=== PATIENT | female | born 1995 | race African-American/Black ===

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

== ENCOUNTER 2017-02-16 08:54 | Emergency (ER) | payer MEDICAID ==
[2017-02-16 09:25] VITALS: BP 123/69
[2017-02-16] MEDS ORDERED: ALBUTEROL SULFATE 0.083% NEB 2.5 MG/3 ML AMPUL NEB ONE (10:26)
--- NOTE | 2017-02-16 11:30 | RADIOLOGY REPORT (SQ) ---
EXAM DESCRIPTION: CHEST PA/LAT COMPLETED DATE/TIME: 02/16/2017 11:19 am REASON FOR STUDY: pain with breathing COMPARISON: 09/30/2011 EXAM PARAMETERS: NUMBER OF VIEWS: two views TECHNIQUE: Digital Frontal and Lateral radiographic views of the chest acquired. RADIATION DOSE: NA LIMITATIONS: none FINDINGS: LUNGS AND PLEURA: No opacities, masses or pneumothorax. No pleural effusion. MEDIASTINUM AND HILAR STRUCTURES: No masses or contour abnormalities. HEART AND VASCULAR STRUCTURES: Heart normal size. No evidence for failure. BONES: No acute findings. HARDWARE: None in the chest. OTHER: No other significant finding. IMPRESSION: NO SIGNIFICANT RADIOGRAPHIC FINDING IN THE CHEST. TECHNICAL DOCUMENTATION: JOB ID: [id number] [employer]- All Rights Reserved
--- NOTE | 2017-02-16 11:40 | ER Document Report ---
HPI - HPI Patient complains to provider of: Pain on right side with breathing and coughing , sore throat Onset: Other Onset/Duration: Sudden Quality of pain: Sharp Severity: Severe Pain Level: 5 Context: Patient states she was having some right rib pain when taking deep breathing and coughing several days ago, took ibuprofen and used a heat pack and symptoms are gone. Patient does complain of runny nose, sore throat and some coughing. Denies fever. Associated Symptoms: Nonproductive cough, Rhinnorhea, Sore throat. denies: Fever Exacerbated by: Coughing Relieved by: Other - Ibuprofen Similar symptoms previously: No Recently seen / treated by doctor: No - ROS ROS below otherwise negative: Yes Systems Reviewed and Negative: Yes All other systems reviewed and negative - CONSTITUTIONAL Constitutional: DENIES: Fever - EENT EENT: REPORTS: Sore Throat, Nasal Drainage-Clear - NEURO Neurology: DENIES: Headache - CARDIOVASCULAR Cardiovascular: DENIES: Chest pain - RESPIRATORY Respiratory: REPORTS: Coughing. DENIES: Trouble Breathing - GASTROINTESTINAL Gastrointestinal: DENIES: Abdominal Pain - REPRODUCTIVE Reproductive: DENIES: : - MUSCULOSKELETAL Musculoskeletal: REPORTS: Back Pain - DERM Skin Color: Normal Past Medical History - General Information source: Patient - Social History Smoking Status: Never Smoker Chew tobacco use (# tins/day): No Frequency of alcohol use: None Drug Abuse: None Lives with: Parents Family History: Reviewed & Not Pertinent Pulmonary Medical History: Reports: Hx Asthma Surgical Hx: Negative - Immunizations Immunizations up to date: Yes Hx Diphtheria, Pertussis, Tetanus Vaccination: Yes Vertical Provider Document - CONSTITUTIONAL Agree With Documented VS: Yes Exam Limitations: No Limitations General Appearance: WD/WN, No Apparent Distress - INFECTION CONTROL TRAVEL OUTSIDE OF THE [place] IN LAST 30 DAYS: No - HEENT HEENT: Atraumatic, Normocephalic, Pharyngeal Erythema - mild - NECK Neck: Normal Inspection - RESPIRATORY Respiratory: Breath Sounds Normal, No Respiratory Distress, Chest Non-Tender O2 Sat by Pulse Oximetry: 100 Notes: Decreased air exchange noted. Improved after nebulizer treatment. Patient is requesting a refill on her albuterol inhaler. Ribs nontender to palpation, and patient is able to twist from side to side at the waist without reproducing pain. - CARDIOVASCULAR Cardiovascular: Regular Rate, Regular Rhythm - GI/ABDOMEN Gastrointestinal: Abdomen Soft, Abdomen Non-Tender - BACK Back: Normal Inspection - MUSCULOSKELETAL/EXTREMETIES Musculoskeletal/Extremeties: MAEW - NEURO Level of Consciousness: Awake, Alert, Appropriate - DERM Integumentary: Warm, Dry, No Rash Course - Re-evaluation Re-evalutation: 02/16/17 11:37 Chest x-ray was negative and findings were discussed with patient. Is requesting a refill on albuterol inhaler. - Vital Signs Vital signs: Temp Pulse Resp BP Pulse Ox 98.7 F 96 H 20 123/69 100 02/16/17 09:24 02/16/17 09:24 02/16/17 09:24 02/16/17 09:24 02/16/17 09:24 Discharge - Discharge Clinical Impression: Rib pain on right side URI (upper respiratory infection) Qualifiers: URI type: unspecified URI Qualified Code(s): J06.9 - Acute upper respiratory infection, unspecified Condition: Good Disposition: HOME, SELF-CARE Additional Instructions: Tylenol or Motrin as needed for pain Bycm-kim-omerajw cough cold medication for symptom relief Push fluids Follow-up with your primary care physician if not better in 1 week, earlier if worsens Return as needed Prescriptions: Albuterol Sulfate [Ventolin HFA MDI 18 GM] 1 - 2 puff IH Q4H PRN #1 mdi PRN Reason: Forms: Return to Work
== END 2017-02-16 12:11 | disposition home or self-care (01) ==
LOC: ER 08:54
DX: J06.9 Acute upper respiratory infection, unspecified (principal); R07.81 Pleurodynia; M54.9 Dorsalgia, unspecified
CPT/HCPCS: 71020; 94640; 99284

== ENCOUNTER 2018-02-08 19:22 | Emergency (ER) | payer SELFPAY ==
[2018-02-08 22:07] LABS: APPEARANCE,URINE CLOUDY; BILIRUBIN,URINE NEGATIVE (NEGATIVE); COLOR,URINE YELLOW; GLUCOSE, URINE NEGATIVE (NEGATIVE); KETONES,URINE NEGATIVE (NEGATIVE); LEUKOCYTE ESTERASE,URINE TRACE (NEGATIVE); NITRITE,URINE NEGATIVE (NEGATIVE); PROTEIN,URINE NEGATIVE (NEGATIVE); URINE SPECIFIC GRAVITY 1.015; UROBILINOGEN,URINE NEGATIVE mg/dL (<2.0)
--- NOTE | 2018-02-08 23:38 | RADIOLOGY REPORT (SQ) ---
EXAM DESCRIPTION: US TRANSVAGINAL COMPLETED DATE/TME: 02/08/2018 22:39 CLINICAL HISTORY: 22 years, Female, abdominal pain in Findings: The uterus measures 7.7 x 5.7 x 5.7 cm. There is intrauterine gestation noted which corresponds to gestational age of six weeks and one day. heart rate is noted at 126 bpm. Maternal right ovary is visualized. Maternal left ovary is not visualized. There appears to be mild hypoechoic region next to the gestational sac measuring 9 mm, suspicious for subchorionic hemorrhage. Vascular flow seen in the right ovary. No significant free fluid. Cervical length 2.8 cm. IMPRESSION: Single viable IUP of six weeks and one day. Possible mild subchorionic hemorrhage.
[2018-02-08] MEDS ORDERED: METOCLOPRAMIDE HCL 10 MG TABLET PO ONE (23:42)
[2018-02-08] MEDS ORDERED: HYDROCODONE/ACETAMINOPHEN 5-325 MG (6 TAB/ER DISP) PO PRN (23:47)
--- NOTE | 2018-02-08 23:48 | ER Document Report ---
ED General - General Chief Complaint: Abdominal Pain Stated Complaint: VOMITING Time Seen by Provider: 02/08/18 22:00 TRAVEL OUTSIDE OF THE [place] IN LAST 30 DAYS: No - Related Data Allergies/Adverse Reactions: No Known Allergies Allergy (Verified 02/16/17 09:24) Past Medical History - Social History Smoking Status: Never Smoker Chew tobacco use (# tins/day): No Frequency of alcohol use: None Drug Abuse: Marijuana Family History: Reviewed & Not Pertinent Patient has suicidal ideation: No Patient has homicidal ideation: No Pulmonary Medical History: Reports: Hx Asthma Renal/ Medical History: Denies: Hx Peritoneal Dialysis - Immunizations Immunizations up to date: Yes Hx Diphtheria, Pertussis, Tetanus Vaccination: Yes Physical Exam - Vital signs Vitals: Temp Pulse Resp BP Pulse Ox 99.0 F 91 16 118/64 99 02/08/18 19:55 02/08/18 19:55 02/08/18 19:55 02/08/18 19:55 02/08/18 19:55 Course - Re-evaluation Re-evalutation: 02/09/18 00:46 Because of the patient having some abdominal pain we did obtain ultrasound which shows an IUP at 6 weeks. There is a small subchorionic hemorrhage and therefore we did do a type and screen and she is Rh+. She does not need RhoGam. At this time for the patient safe to be discharged home. She looks well. I will give her Reglan to take at home. Also prescribed vitamins. We will have her follow-up with either the health department or the [facility] for continued care. I explained to her what a subchorionic hemorrhage was. I encouraged her return to ER if she has heavy vaginal bleeding, worsening pain, or she feels unwell. She agrees with plan will be discharged home. Dictation of this chart was performed using voice recognition software; therefore, there may be some unintended grammatical errors. - Vital Signs Vital signs: Temp Pulse Resp BP Pulse Ox 98.5 F 90 16 117/70 100 02/08/18 23:31 02/08/18 23:31 02/08/18 23:31 02/08/18 23:31 02/08/18 23:31 - Laboratory Laboratory results interpreted by me: 02/08/18 02/08/18 21:55 22:45 Beta HCG, Quant 84065.00 H Ur Leukocyte Esterase TRACE H Urine HCG, Qual POSITIVE H Discharge - Discharge Clinical Impression: Abdominal pain Qualifiers: Abdominal location: lower abdomen, unspecified Qualified Code(s): R10.30 - Lower abdominal pain, unspecified Qualifiers: Weeks of gestation: less than 8 weeks Qualified Code(s): Z3A.01 - Less than 8 weeks gestation of Vomiting Qualifiers: Vomiting type: unspecified Vomiting Intractability: non-intractable Nausea presence: with nausea Qualified Code(s): R11.2 - Nausea with vomiting, unspecified Condition: Good Disposition: HOME, SELF-CARE Additional Instructions: Your ultrasound shows that you do have a fetus in the uterus. No evidence of ectopic . You did have a small amount of bleeding where the fetus implants near the uterus. This bleeding is called a subchorionic hemorrhage. Most times subchorionic hemorrhages resolve on their own. Sometimes they will progress and worsen into a miscarriage. Please return to the ER if you have increasing pain, vaginal bleeding, or feel unwell. Please avoid sexual activity or heavy lifting for 2 weeks. Please make an appointment with the women's health center or the health department for continued care. Please take vitamins every day. I have prescribed you Reglan which is a nausea medicine to help with your nausea. Prescriptions: Metoclopramide HCl [Reglan 10 mg Tablet] 1 tab PO ASDIR PRN #20 tablet PRN Reason: Pnv No.95/Ferrous Fum/Folic AC [ Formula] 1 each PO DAILY #60 tablet Forms: Return to Work Referrals: CONCHITA TORRES MD [ACTIVE STAFF] - Follow up in 3-5 days
[2018-02-09 01:27] VITALS: BP 102/64
== END 2018-02-09 01:27 | disposition home or self-care (01) ==
LOC: ER 19:22
DX: O21.9 Vomiting of pregnancy, unspecified (principal); R10.30 Lower abdominal pain, unspecified; Z3A.01 Less than 8 weeks gestation of pregnancy
CPT/HCPCS: 36415; 76817; 81001; 81025; 84702; 86900; 86901; 93976; 99284

== ENCOUNTER 2018-09-26 11:46 | Inpatient (IN) | payer MEDICAID ==
[2018-09-26] MEDS ORDERED: MISOPROSTOL 0.2 MG TABLET ONE (12:15)
[2018-09-26] MEDS ORDERED: OXYTOCIN/NORMAL SALINE 20 UNIT/1,000 ML RTUINJ ONE (12:15)
[2018-09-26] MEDS ORDERED: LIDOCAINE 1% INJ-PF (10 MG/ML) 30 ML SDV ONE (12:15)
[2018-09-26 13:04] LABS: ABSOLUTE LYMPHOCYTES (AUTO) 1.2 10^3/uL (0.5-4.7); ABSOLUTE MONOCYTES (AUTO) 0.3 10^3/uL (0.1-1.4); ABSOLUTE NEUT (AUTO) 9.8 10^3/uL (1.7-8.2); BASOPHILS % (AUTO) 0.2 % (0-2); HEMATOCRIT 41.4 % (36.0-47.0); HEMOGLOBIN 13.4 g/dL (12.0-15.5); LYMPHOCYTES % (AUTO) 10.5 % (13-45); MEAN CORPUSCULAR HEMOGLOBIN 23.7 pg (27.0-33.4); MEAN CORPUSCULAR HGB CONC 32.3 g/dL (32.0-36.0); MEAN CORPUSCULAR VOLUME 73 fl (80-97); MONOCYTES % (AUTO) 2.5 % (3-13); PLATELET COUNT 212 10^3/uL (150-450); RED BLOOD COUNT 5.65 10^6/uL (3.72-5.28); RED CELL DISTRIBUTION WIDTH 23.7 % (11.5-14.0); SEGMENTED NEUTROPHILS % (AUTO) 86.8 % (42-78); TOTAL CELLS COUNTED % (AUTO) 100 %; WHITE BLOOD COUNT 11.3 10^3/uL (4.0-10.5)
[2018-09-26 13:36] LABS: POLYCHROMASIA SLIGHT
[2018-09-26 13:37] LABS: ANISOCYTOSIS 3+; OVALOCYTES SLIGHT; PLATELET COMMENT ADEQUATE; POIKILOCYTOSIS SLIGHT; SCHISTOCYTES SLIGHT; TEAR DROP CELLS SLIGHT
[2018-09-26 14:39] LABS: APPEARANCE,URINE TURBID; BILIRUBIN,URINE NEGATIVE (NEGATIVE); COLOR,URINE YELLOW; GLUCOSE, URINE NEGATIVE (NEGATIVE); KETONES,URINE 80 mg/dL (NEGATIVE); LEUKOCYTE ESTERASE,URINE NEGATIVE (NEGATIVE); NITRITE,URINE NEGATIVE (NEGATIVE); PROTEIN,URINE 30 mg/dL (NEGATIVE); URINE SPECIFIC GRAVITY 1.019; UROBILINOGEN,URINE NEGATIVE mg/dL (<2.0)
[2018-09-26] MEDS ORDERED: BENZOCAINE/MENTHOL AEROSOL SPRAY 56 ML ONE (14:46)
[2018-09-26] MEDS ORDERED: ACETAMINOPHEN WITH CODEINE #3 TABLET ONE (14:46)
[2018-09-26 15:09] LABS: URINE AMPHETAMINES SCREEN NEGATIVE; URINE BARBITURATES SCREEN NEGATIVE; URINE BENZODIAZEPINES SCREEN NEGATIVE; URINE COCAINE SCREEN NEGATIVE; URINE METHADONE SCREEN NEGATIVE; URINE PHENCYCLIDINE SCREEN NEGATIVE
[2018-09-26 16:04] LABS: URINE MARIJUANA (THC) SCREEN NEGATIVE
--- NOTE | 2018-09-26 16:04 | Delivery Summary ---
Del Sum A-C Datetime Report Generated by CPN: 09/26/2018 16:03 DELIVERY PERSONNEL DELIVERY PERSONNEL: [id number] Delivery Doctor:: Maggy Johnson CNM Labor and Delivery Nurse:: Charlette Colin RNinspector watch parts Nurse:: Patel Huertas RN Top Lifter/VOIP NETWORK ENGINEER: Joliesara Odom, ST MATERNAL INFORMATION Delivery Anesthesia: None Medications After Delivery: Pitocin Drip 20 Units/1000ml NSS Maternal Complications: None Provider Comments: SVDVF over intact perineaum. OA to VALDEZ, vigorous to mother abd. Cord clamped x 2, cut per family. Cord blood collected. Placenta delivered by RN, intact via Gee. Bleeding stabilized. Lacerations repaired with chromic, lidocaine used. Mother and infant stable. LABOR SUMMARY EDC: 10/03/2018 00:00 No. Babies in Womb: 1 Attempted: No Labor Anesthesia: None LABOR INFORMATION Reason for Induction: Not Applicable Reason for Induction- Other: n/a Onset of Labor: 09/26/2018 05:00 Complete Dilatation: 09/26/2018 12:48 Oxytocin: N/A Group B Beta Strep: negative Antibiotics # of Doses: 0 Steroids Given: None Reason Steroids Not Administered: Not Applicable MEMBRANES Membranes Rupture Method: Artificial Rupture of Membranes: 09/26/2018 13:26 Length of Rupture (hr): 0.00 Amniotic Fluid Color: Clear Amniotic Fluid Amount: Small Amniotic Fluid Odor: Normal STAGES OF LABOR Stage 1 hr: 7 Stage 1 min: 48 Stage 2 hr: 0 Stage 2 min: 38 Stage 3 hr: 0 Stage 3 min: 8 Total Time in Labor hr: 8 Total Time in Labor min: 34 VAGINAL DELIVERY Episiotomy: None Other Laceration: 1* periclitoral, 1* Rt labial Laceration Repair Note: repaired with chromic suture Sponge Count Correct: Yes Sharps Count Correct: Yes CSECTION DELIVERY Primary Indication: N/A Secondary Indication: N/A CSection Incidence: N/A Labor: N/A Elective: N/A CSection Incision: N/A BABY A INFORMATION Delivery Date/Time: 09/26/2018 13:26 Method of Delivery: Vaginal Born in Route : No : N/A Forceps: N/A Vacuum Extraction: N/A Shoulder Dystocia : No PRESENTATION/POSITION BABY A Presentation: Cephalic Cephalic Presentation: Vertex Vertex Position: Right Occipital Anterior Breech Presentation: N/A PLACENTA INFORMATION BABY A Placenta Delivery Time : 09/26/2018 13:34 Placenta Method of Delivery: Spontaneous Placenta Status: Delivered SCORES BABY A Heart Rate 1 min: >100 bpm Resp Effort 1 min: Good Cry Reflex Irritability 1 min: Cough or Sneeze or Pulls Away Muscle Tone 1 min: Active Motion Color 1 min: Body [place], Extremities Blue Resuscitation Effort 1 min: Tactile Stimulation SCORE 1 MIN: 9 Heart Rate 5 min: >100 bpm Resp Effort 5 min: Good Cry Reflex Irritability 5 min: Cough or Sneeze or Pulls Away Muscle Tone 5 min: Active Motion Color 5 min: Body [place], Extremities Blue Resuscitation Effort 5 min: Tactile Stimulation SCORE 5 MIN: 9 INFANT INFORMATION BABY A Gestational Age at Delivery: 39.0 Gestational Status: Full Term- 39- 40.6 Weeks Outcome : Liveborn Condition : Stable Sex: Female IDENTIFICATION BABY A Infant Verification Date/Time: 09/26/2018 13:46 ID Band Number: [id number] Mother's Name Verified: Yes RN Verifying : TAlex Huertas, RN and B. Baidy, RN WEIGHT/LENGTH BABY A Birthweight (gm): 3203 Infant Weight (lb): 7 Infant Weight (oz): 1 Length (in): 19.00 Length (cm): 48.26 CORD INFORMATION BABY A No. Cord Vessels: 3 Nuchal Cord : N/A Cord Blood Taken: Yes-For Storage (Mom's Blood type +) Infant Suction: None ASSESSMENT BABY A Infant Complications: None Physical Findings at Delivery: Within Normal Limits Infant Respirations: Appears Normal Skin to Skin: Yes Skin to Skin Time (min): 80 Track Production Engineer/ALS Called : No Care By: T Aleksandar RN Transferred To: Remains with Mother BABY B INFORMATION : N/A SIGNATURES Assignment: Kristal Garza MD Signature: with User ID: [email or web address] : with User ID: [email or web address] : I was personally available for consultation and serving as supervising physician for the MLP.
[2018-09-26] MEDS ORDERED: ZOLPIDEM TARTRATE 5 MG TABLET PO PRN (16:06)
[2018-09-26] MEDS ORDERED: DIBUCAINE 1% OINTMENT 56 GM TP PRN (16:06)
[2018-09-26] MEDS ORDERED: BENZOCAINE/MENTHOL AEROSOL SPRAY 56 ML TOP PRN (16:06)
[2018-09-26] MEDS ORDERED: DIPH/PERTUSS(ACELL)/TETANUS VAC/PF 0.5 ML SYR (>=10YO) IM PRN (16:06)
[2018-09-26] MEDS ORDERED: MEASLES,MUMPS&RUBELLA VACC/PF 0.5 ML VIAL SUBCUT PRN (16:06)
[2018-09-26] MEDS ORDERED: OXYTOCIN/NORMAL SALINE 20 UNIT/1,000 ML RTUINJ IV PRN (16:06)
[2018-09-26] MEDS ORDERED: ACETAMINOPHEN WITH CODEINE #3 TABLET PO PRN (16:06)
[2018-09-26 17:19] LABS: ABSOLUTE LYMPHOCYTES (AUTO) 1.3 10^3/uL (0.5-4.7); ABSOLUTE MONOCYTES (AUTO) 0.7 10^3/uL (0.1-1.4); BASOPHILS % (AUTO) 0.2 % (0-2); EOSINOPHILS % (AUTO) 0.1 % (0-6); HEMATOCRIT 39.4 % (36.0-47.0); HEMOGLOBIN 12.8 g/dL (12.0-15.5); LYMPHOCYTES % (AUTO) 7.9 % (13-45); MEAN CORPUSCULAR HEMOGLOBIN 23.9 pg (27.0-33.4); MEAN CORPUSCULAR HGB CONC 32.4 g/dL (32.0-36.0); MEAN CORPUSCULAR VOLUME 74 fl (80-97); MONOCYTES % (AUTO) 4.2 % (3-13); PLATELET COUNT 223 10^3/uL (150-450); RED BLOOD COUNT 5.34 10^6/uL (3.72-5.28); RED CELL DISTRIBUTION WIDTH 23.4 % (11.5-14.0); SEGMENTED NEUTROPHILS % (AUTO) 87.6 % (42-78); TOTAL CELLS COUNTED % (AUTO) 100 %; WHITE BLOOD COUNT 17.1 10^3/uL (4.0-10.5)
[2018-09-26] MEDS: FERROUS SULFATE 325 MG TABLET PO SCH (18:30)
[2018-09-26] MEDS: DOCUSATE SODIUM 100 MG CAPSULE PO SCH (18:30)
[2018-09-26] MEDS: IBUPROFEN 800 MG TABLET PO SCH (21:04)
[2018-09-26] MEDS: ACETAMINOPHEN WITH CODEINE #3 TABLET PO PRN (23:49)
[2018-09-27] MEDS: IBUPROFEN 800 MG TABLET PO SCH ×3 (05:45→21:02)
[2018-09-27 06:26] LABS: ABSOLUTE EOSINOPHILS # (AUTO) 0.1 10^3/uL (0.0-0.6); ABSOLUTE LYMPHOCYTES (AUTO) 3.3 10^3/uL (0.5-4.7); ABSOLUTE MONOCYTES (AUTO) 1.1 10^3/uL (0.1-1.4); ABSOLUTE NEUT (AUTO) 9.3 10^3/uL (1.7-8.2); BASOPHILS % (AUTO) 0.3 % (0-2); EOSINOPHILS % (AUTO) 0.4 % (0-6); HEMATOCRIT 37.8 % (36.0-47.0); HEMOGLOBIN 12.5 g/dL (12.0-15.5); LYMPHOCYTES % (AUTO) 23.7 % (13-45); MEAN CORPUSCULAR HEMOGLOBIN 23.9 pg (27.0-33.4); MEAN CORPUSCULAR VOLUME 73 fl (80-97); MONOCYTES % (AUTO) 7.9 % (3-13); PLATELET COUNT 212 10^3/uL (150-450); RED BLOOD COUNT 5.22 10^6/uL (3.72-5.28); RED CELL DISTRIBUTION WIDTH 23.5 % (11.5-14.0); SEGMENTED NEUTROPHILS % (AUTO) 67.7 % (42-78); TOTAL CELLS COUNTED % (AUTO) 100 %; WHITE BLOOD COUNT 13.7 10^3/uL (4.0-10.5)
[2018-09-27 07:08] LABS: ANISOCYTOSIS 3+; BURR CELLS SLIGHT; OVALOCYTES SLIGHT; TARGET CELLS SLIGHT; TEAR DROP CELLS SLIGHT
[2018-09-27 07:09] LABS: PLATELET COMMENT ADEQUATE
--- NOTE | 2018-09-27 09:16 | PDOC PROGRESS REPORT ---
Subjective-OB Progress Note for:: 09/27/18 Subjective: Doing well, no c/o, family at BS, holding baby, breast and bottle feeding, Physical Exam (OB) Vital Signs: Temp Pulse Resp BP Pulse Ox 98.2 F 83 16 117/72 99 09/27/18 08:04 09/27/18 08:04 09/27/18 08:04 09/27/18 08:04 09/27/18 08:04 Intake & Output 09/26/18 09/27/18 09/28/18 06:59 06:59 06:59 Weight 96.162 kg - PIH/Pre-Eclampsia DTR's: 2 + Clonus: Negative Headache: Absent Epigastric Pain: No Visual Changes: No - Lochia Lochia Amount: Small 10-25 ml Lochia Color: Rubra/Red - Abdomen Description: Soft, Round Fundal Description: Firm Fundal Height: u/u - u/2 Objective-Diagnostic Laboratory: 09/27/18 05:39 09/26/18 09/26/18 09/26/18 11:52 12:27 12:27 WBC 11.3 H RBC 5.65 H Hgb 13.4 Hct 41.4 MCV 73 L MCH 23.7 L MCHC 32.3 RDW 23.7 H Plt Count 212 Seg Neutrophils % 86.8 H Lymphocytes % 10.5 L Monocytes % 2.5 L Eosinophils % 0.0 Basophils % 0.2 Absolute Neutrophils 9.8 H Absolute Lymphocytes 1.2 Absolute Monocytes 0.3 Absolute Eosinophils 0.0 Absolute Basophils 0.0 Urine Color YELLOW Urine Appearance TURBID Urine pH 5.0 Ur Specific [place] 1.019 Urine Protein 30 H Urine Glucose (UA) NEGATIVE Urine Ketones 80 H Urine Blood MODERATE H Urine Nitrite NEGATIVE Ur Leukocyte Esterase NEGATIVE Blood Type A POSITIVE Antibody Screen NEGATIVE 09/26/18 09/27/18 16:50 05:39 WBC 17.1 H 13.7 H RBC 5.34 H 5.22 Hgb 12.8 12.5 Hct 39.4 37.8 MCV 74 L 73 L MCH 23.9 L 23.9 L MCHC 32.4 33.0 RDW 23.4 H 23.5 H Plt Count 223 212 Seg Neutrophils % 87.6 H 67.7 Lymphocytes % 7.9 L 23.7 Monocytes % 4.2 7.9 Eosinophils % 0.1 0.4 Basophils % 0.2 0.3 Absolute Neutrophils 15.0 H 9.3 H Absolute Lymphocytes 1.3 3.3 Absolute Monocytes 0.7 1.1 Absolute Eosinophils 0.0 0.1 Absolute Basophils 0.0 0.0 Urine Color Urine Appearance Urine pH Ur Specific [place] Urine Protein Urine Glucose (UA) Urine Ketones Urine Blood Urine Nitrite Ur Leukocyte Esterase Blood Type Antibody Screen Assessment and Plan(PN) - Assessment and Plan (1) Vaginal delivery Is this a current diagnosis for this admission?: Yes - Time Spent with Patient Time with patient: Less than 15 minutes Medications reviewed and adjusted accordingly: Yes - Disposition Anticipated Discharge: Home Within: within 24 hours
[2018-09-27] MEDS: PRENATAL VITAMIN W DHA CAPSULE PO SCH (10:06)
[2018-09-27] MEDS: FERROUS SULFATE 325 MG TABLET PO SCH ×2 (10:06→18:22)
[2018-09-27] MEDS: SENNOSIDES/DOCUSATE 8.6-50 MG 1 EACH TABLET PO SCH (10:06)
[2018-09-27] MEDS: DOCUSATE SODIUM 100 MG CAPSULE PO SCH ×2 (10:07→18:21)
[2018-09-27] MEDS: ACETAMINOPHEN WITH CODEINE #3 TABLET PO PRN (19:20)
[2018-09-28] MEDS: ACETAMINOPHEN WITH CODEINE #3 TABLET PO PRN (00:35)
[2018-09-28] MEDS: IBUPROFEN 800 MG TABLET PO SCH ×2 (05:20→14:16)
[2018-09-28 08:28] VITALS: BP 106/53
[2018-09-28] MEDS: DOCUSATE SODIUM 100 MG CAPSULE PO SCH (09:37)
[2018-09-28] MEDS: PRENATAL VITAMIN W DHA CAPSULE PO SCH (09:37)
[2018-09-28] MEDS: SENNOSIDES/DOCUSATE 8.6-50 MG 1 EACH TABLET PO SCH (09:37)
[2018-09-28] MEDS: FERROUS SULFATE 325 MG TABLET PO SCH (09:37)
--- NOTE | 2018-09-28 12:13 | PDOC DISCHARGE SUMMARY ---
Final Diagnosis Discharge Date: 09/28/18 - Final Diagnosis (1) Obstetric labial laceration, delivered, current hospitalization Is this a current diagnosis for this admission?: Yes (2) Vaginal delivery Is this a current diagnosis for this admission?: Yes Discharge Data - Discharge Medication Prescriptions: Ibuprofen [Motrin 800 mg Tablet] 800 mg PO Q8HP PRN #30 tablet PRN Reason: Abdominal Cramping Benzocaine/Menthol [Dermoplast Aerosol [place] 56 ml] 1 applic TOP PRN PRN #1 can PRN Reason: Home Medications: Vit,Calc76/Iron/Folic [Prenatabs Rx Tablet] 1 tab PO DAILY 09/26/18 Benzocaine/Menthol [Dermoplast Aerosol [place] 56 ml] 1 applic TOP PRN PRN #1 can 09/28/18 Ibuprofen [Motrin 800 mg Tablet] 800 mg PO Q8HP PRN #30 tablet 09/28/18 Reason(s) for Admission: Onset of Labor Procedures: Ultrasound Intrapartum Procedure(s): Spontaneous Vaginal Delivery Complication(s): Laceration-Labial, Other - laceration leonardo clitoral - Diagnosis Test Laboratory: Temp Pulse Resp BP Pulse Ox 98.0 F 85 16 106/53 L 100 09/28/18 08:13 09/28/18 08:13 09/28/18 08:13 09/28/18 08:13 09/28/18 08:13 09/26/18 09/26/18 09/26/18 11:52 12:27 16:50 RBC 5.65 H 5.34 H Hgb 13.4 12.8 Hct 41.4 39.4 Urine Opiates Screen NEGATIVE 09/27/18 05:39 RBC 5.22 Hgb 12.5 Hct 37.8 Urine Opiates Screen - Discharge information/Instructions Discharge Activity: Activity As Tolerated, Balance Activity w/Rest, No Lifting Over 10 Pounds, Pelvic Rest, No tub bath, Walk Frequently Discharge Diet: As Tolerated, Regular Disposition: HOME, SELF-CARE Follow up with: [facility] in: 5, Weeks
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
== END 2018-09-28 15:30 | disposition home or self-care (01) | DRG 807 ==
LOC: LC 11:46 → LR 12:12 → 2S 15:48
PROVIDERS: ADMIT Student in an Organized Health Care Education/Training Program; ATTEND Student in an Organized Health Care Education/Training Program
PROC: 10E0XZZ Delivery of Products of Conception, External Approach (ICD-10-PCS; principal; 2018-09-26)
PROC: 0HQ9XZZ Repair Perineum Skin, External Approach (ICD-10-PCS; 2018-09-26)
DX: O99.02 Anemia complicating childbirth (principal); Z37.0 Single live birth; D57.3 Sickle-cell trait; O70.0 First degree perineal laceration during delivery; Z3A.39 39 weeks gestation of pregnancy
CPT/HCPCS: 36415; 80307; 81005; 85025; 86592; 86850; 86900; 86901; J2590; J3490

== ENCOUNTER 2019-03-18 18:40 | Emergency (ER) | payer MEDICAID ==
--- NOTE | 2019-03-18 18:53 | ER Document Report ---
ED Medical Screen (RME) - General Chief Complaint: Difficulty Swallowing Stated Complaint: DIFFICULTY SWALLOWING Time Seen by Provider: 03/18/19 18:51 Mode of Arrival: Ambulatory Information source: Patient Notes: Patient presents complaining of sore throat and difficulty swallowing that started yesterday. No fever. Patient does report mild headache as well. I have greeted and performed a rapid initial assessment of this patient. A comprehensive ED assessment and evaluation of the patient, analysis of test results and completion of the medical decision making process will be conducted by additional ED providers. TRAVEL OUTSIDE OF THE [place] IN LAST 30 DAYS: No - Related Data Allergies/Adverse Reactions: No Known Allergies Allergy (Verified 03/18/19 18:44) Past Medical History - Social History Chew tobacco use (# tins/day): No Frequency of alcohol use: None Drug Abuse: None Pulmonary Medical History: Reports: Hx Asthma Renal/ Medical History: Denies: Hx Peritoneal Dialysis - Immunizations Immunizations up to date: Yes Hx Diphtheria, Pertussis, Tetanus Vaccination: Yes Physical Exam - HEENT Pharynx: Erythema. No: Exudate, Uvular edema, Potential airway comprom.
--- NOTE | 2019-03-18 20:01 | ER Document Report ---
HPI - HPI Patient complains to provider of: sore throat Time Seen by Provider: 03/18/19 18:51 Onset: Yesterday Onset/Duration: Sudden Severity: Mild Pain Level: 2 Context: 23-year-old female presents emergency department with complaints of sore throat hurts to swallow. Denies fever vomiting diarrhea. 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 Complains of slight headache. Patient talking in a clear voice no cough noted. Associated Symptoms: Headache Exacerbated by: Denies Relieved by: Denies Similar symptoms previously: No Recently seen / treated by doctor: No - REPRODUCTIVE Reproductive: DENIES: : Past Medical History - General Information source: Patient Last Menstrual Period: Current - Social History Smoking Status: Never Smoker Chew tobacco use (# tins/day): No Frequency of alcohol use: None Drug Abuse: None Occupation: call center Lives with: Family Family History: Reviewed & Not Pertinent Patient has suicidal ideation: No Patient has homicidal ideation: No Pulmonary Medical History: Reports: Hx Asthma Renal/ Medical History: Denies: Hx Peritoneal Dialysis Surgical Hx: Negative - Immunizations Immunizations up to date: Yes Hx Diphtheria, Pertussis, Tetanus Vaccination: Yes Vertical Provider Document - CONSTITUTIONAL Agree With Documented VS: Yes Exam Limitations: No Limitations General Appearance: WD/WN, No Apparent Distress - INFECTION CONTROL TRAVEL OUTSIDE OF THE [place] IN LAST 30 DAYS: No - HEENT HEENT: Atraumatic, Normocephalic, Pharyngeal Erythema - Good airway no trismus clear voice opens mouth wide no peritonsillar abscess. negative: Conjuctival Injection, Tympanic Membrane Red - NECK Neck: Normal Inspection, Supple. negative: Lymphadenopathy-Right - RESPIRATORY Respiratory: Breath Sounds Normal, No Respiratory Distress - CARDIOVASCULAR Cardiovascular: Regular Rhythm, Tachycardia - MUSCULOSKELETAL/EXTREMETIES Musculoskeletal/Extremeties: [place]DA FAIR - NEURO Level of Consciousness: Awake, Alert, Appropriate Motor/Sensory: No Motor Deficit - DERM Integumentary: Warm, Dry, No Rash Course - Re-evaluation Re-evalutation: 03/18/19 20:51 23-year-old female presents emergency department sore throat for 1 day. Also complains of slight headache. No fever vomiting diarrhea. Patient works at a call center. Patient looks nontoxic talks in a clear voice opens mouth wide no trismus good airway. Patient was instructed on negative strep test. Instructed throat culture pending and she will be contacted should she need antibiotics. She verbalized understanding to all instructions. Dictation of this chart was performed using voice recognition software; therefore, there may be some unintended grammatical errors. Discharge - Discharge Clinical Impression: Sore throat Condition: Stable Disposition: HOME, SELF-CARE Instructions: Sore Throat ([facility]) Additional Instructions: *You have been evaluated for a sore throat *Your strep test was negative. A throat culture is pending. You will be contacted in 2 to 3 days should you need antibiotics. *In the meantime gargle with warm salt water and utilize throat lozenges for comfort *Do not let anyone drink/eat after you *Good hand washing *Follow-up with a primary care provider within 1 week for recheck *Return to ED for worsening condition change, needs, concerns, unable to swallow Forms: Elevated Blood Pressure, Return to Work Referrals: DARNELL WILLIAM MD [Primary Care Provider] - Follow up as needed
[2019-03-18 20:17] VITALS: BP 125/80
== END 2019-03-18 20:22 | disposition home or self-care (01) ==
LOC: ER 18:40
DX: J02.9 Acute pharyngitis, unspecified (principal); R51 Headache
CPT/HCPCS: 87070; 87880; 99284

== ENCOUNTER 2019-05-04 19:22 | Emergency (ER) | payer MEDICAID ==
[2019-05-04] MEDS ORDERED: CIPROFLOXACIN HCL/DEXAMETH OTIC DROP 7.5 ML AS ONE (22:23)
--- NOTE | 2019-05-04 22:24 | ER Document Report ---
HPI - HPI Time Seen by Provider: 05/04/19 22:11 Pain Level: 4 Notes: Otherwise healthy 24-year-old female presenting to the emergency department with complaints of left ear pain. Patient reports she is tried cleaning out her ear however she cannot get the pain and full sensation to go away. She states symptoms have been ongoing for several days. - EENT EENT: REPORTS: Ear Pain - left - REPRODUCTIVE Reproductive: DENIES: : Past Medical History - General Information source: Patient - Social History Smoking Status: Never Smoker Chew tobacco use (# tins/day): No Drug Abuse: None Family History: Reviewed & Not Pertinent Patient has suicidal ideation: No Patient has homicidal ideation: No Pulmonary Medical History: Reports: Hx Asthma Renal/ Medical History: Denies: Hx Peritoneal Dialysis - Immunizations Immunizations up to date: Yes Hx Diphtheria, Pertussis, Tetanus Vaccination: Yes Vertical Provider Document - CONSTITUTIONAL Notes: PHYSICAL EXAMINATION: GENERAL: Well-appearing, well-nourished and in no acute distress. HEAD: Atraumatic, normocephalic. EYES: Pupils equal round extraocular movements intact, conjunctiva are normal. ENT: Unable to visualize left TM due to swollen canal, no mastoid tenderness bilaterally. NECK: Normal range of motion LUNGS: No respiratory distress Musculoskeletal: Normal range of motion NEUROLOGICAL: Normal speech, normal gait. PSYCH: Normal mood, normal affect. SKIN: Warm, Dry, normal turgor, no rashes or lesions noted. - INFECTION CONTROL TRAVEL OUTSIDE OF THE [place] IN LAST 30 DAYS: No Course - Re-evaluation Re-evalutation: Examination consistent with otitis externa. Patient will be started on Ciprodex drops, and ear wick will be applied. The ear canal is very swollen. Patient verbalizes understanding and agreement with treatment plan. ED return precautions were also discussed and patient verbalized understanding and agreement with same. - Vital Signs Vital signs: Temp Pulse Resp BP Pulse Ox 98.2 F 97 16 148/81 H 97 05/04/19 19:49 05/04/19 19:49 05/04/19 19:49 05/04/19 19:49 05/04/19 19:49 Discharge - Discharge Clinical Impression: Otitis externa Qualifiers: Otitis externa type: diffuse Chronicity: acute Laterality: left Qualified Code(s): H60.312 - Diffuse otitis externa, left ear Condition: Stable Disposition: HOME, SELF-CARE Instructions: Otitis Externa ([facility]) Additional Instructions: Please apply 4 drops to the left ear twice daily for 7 days. The wick may fall out on its own and that is okay. Continue taking the drops. Please also take some ibuprofen 600 mg every 6 hours should help with the pain and inflammation. Follow-up with your doctor in 3 to 5 days for recheck. Forms: Parent Work Note Referrals: DARNELL WILLIAM MD [ACTIVE STAFF] - Follow up as needed
[2019-05-05 06:23] VITALS: BP 120/69
== END 2019-05-04 23:25 | disposition home or self-care (01) ==
LOC: ER 19:22
DX: H60.312 Diffuse otitis externa, left ear (principal); H92.02 Otalgia, left ear
CPT/HCPCS: 99282; J3490